=== PATIENT | male | born 1970 | race Caucasian/White ===

== ENCOUNTER 2022-09-02 13:14 | Outpatient (CLI) | payer OTHER, SELFPAY ==
[2022-09-02 17:22] LABS: Cholesterol* 175 mg/dL (90-199)
[2022-09-02 17:23] LABS: HDL Cholesterol* 44 mg/dL (>=40); LDL Cholesterol Calculated 67 mg/dL (<100); Triglycerides* 318 mg/dL (40-149)
== END 2022-09-02 13:15 | disposition home or self-care (01) ==
PROVIDERS: PCP Family Medicine; Visit Provider Family Medicine
DX: E78.5 Hyperlipidemia, unspecified (principal); E03.9 Hypothyroidism, unspecified
CPT/HCPCS: 80061; 84443

== ENCOUNTER 2023-11-15 11:09 | Outpatient (CLI) | payer OTHER, SELFPAY | END 2023-11-15 11:10 | disposition home or self-care (01) | PROVIDERS: PCP Family Medicine; Visit Provider Family Medicine | DX: I10 Essential (primary) hypertension (principal); E78.5 Hyperlipidemia, unspecified; E03.9 Hypothyroidism, unspecified; Z12.5 Encounter for screening for malignant neoplasm of prostate | CPT/HCPCS: 80048; 80061; 84439; G0103 ==

== ENCOUNTER 2024-06-14 15:16 | Outpatient (CLI) | payer OTHER, SELFPAY | END 2024-06-14 15:17 | disposition home or self-care (01) | PROVIDERS: PCP Family Medicine; Visit Provider Family Medicine | DX: R30.0 Dysuria (principal); Z11.3 Encounter for screening for infections with a predominantly sexual mode of transmission | CPT/HCPCS: 86592; 86703; 87491; 87591 ==

== ENCOUNTER 2024-12-27 10:04 | Outpatient (CLI) | payer OTHER, SELFPAY | END 2024-12-27 10:05 | disposition home or self-care (01) | PROVIDERS: PCP Family Medicine; Visit Provider Family Medicine | DX: R53.83 Other fatigue (principal); I10 Essential (primary) hypertension; E03.9 Hypothyroidism, unspecified; E78.5 Hyperlipidemia, unspecified; E13.9 Other specified diabetes mellitus without complications; E66.9 Obesity, unspecified | CPT/HCPCS: 80048; 80061; 84403; 84443 ==

== ENCOUNTER 2025-01-13 14:40 | Outpatient (CLI) | payer OTHER, SELFPAY | END 2025-01-13 14:41 | disposition home or self-care (01) | LOC: LKVREF 14:43 | PROVIDERS: PCP Family Medicine; Visit Provider Family Medicine | DX: E10.65 Type 1 diabetes mellitus with hyperglycemia (principal); Z79.4 Long term (current) use of insulin; Z79.85 Long-term (current) use of injectable non-insulin antidiabetic drugs; Z79.84 Long term (current) use of oral hypoglycemic drugs | CPT/HCPCS: 84681 ==

== ENCOUNTER 2025-04-18 08:59 | Outpatient (CLI) | payer OTHER, SELFPAY | END 2025-04-18 09:00 | disposition home or self-care (01) | PROVIDERS: PCP Family Medicine; Visit Provider Family Medicine | DX: E11.9 Type 2 diabetes mellitus without complications (principal); E03.9 Hypothyroidism, unspecified; I10 Essential (primary) hypertension; E66.9 Obesity, unspecified; Z12.5 Encounter for screening for malignant neoplasm of prostate; E29.1 Testicular hypofunction; Z79.4 Long term (current) use of insulin | CPT/HCPCS: 84270; 84402; 84403; G0103 ==

== ENCOUNTER 2025-05-05 07:01 | Outpatient (CLI) | payer OTHER, SELFPAY ==
--- NOTE | 2025-05-05 07:15 | MR_ITS ---
[address] [address] Phone:?[phone] Fax:?[phone] Referring Physician Information: Nba Bates M.D. [id number] [facility] [address] Phone:?[phone] Fax:?[phone] Patient:Jennifer Multani D.O.B:?1970 Sex:?Male Phone:?[phone] [facility] MRN:?[id number] Exam Date:?05/05/2025 EXAM: MRI OF THE LEFT ELBOW, WITHOUT CONTRAST CLINICAL: Left elbow swelling, mass and lump. COMPARISONS: X-rays 04/30/2025. TECHNICAL: Multiplanar multisequence MRI of the left elbow was obtained. SEDATION: None. CONTRAST: None. FINDINGS: Elbow joint: Effusion: Physiologic. Radiohumeral plica: No pathologic thickening or enlargement. Osteochondral surfaces: No osteochondral abnormality. Bones: No suspicious marrow signal alteration, fracture line, subluxation or dislocation. Myotendinous structures: Biceps: There is moderate tendinosis of the distal biceps tendon at the radial attachment. No biceps tendon tear. Brachialis: No strain/tear. Triceps: Enthesophyte formation involves the distal triceps tendon at the olecranon attachment. Triceps tendon otherwise appears unremarkable. Forearm extensors: There is mild tendinosis/partial tearing of the common extensor tendon at the lateral humeral epicondyle attachment. Forearm flexors: No tear or tendinopathy. Ligaments: Medial ulnar collateral: Normal. Radial collateral proper: Normal. Lateral ulnar collateral: Normal. Nerves: Ulnar: There is thickening and increased signal involving the nerve as it courses within the cubital tunnel with a small accessory anconeus muscle adjacent to the nerve as it courses within the cubital tunnel as seen on axial series 4 images 9-13. Median: Normal. Radial: Normal. Ganglion cyst formation is seen along the lateral aspect of the proximal radius measuring up to 5.6 cm in craniocaudal length as seen on coronal series 7 images 9-13. IMPRESSION: 1. Ganglion cyst along the lateral aspect of the proximal radius adjacent to the skin marker in the region of interest measuring approximately 5.6 cm in size. 2. Moderate tendinosis of the distal biceps tendon at the radial attachment. 3. Mild tendinosis/partial tearing of the common extensor tendon at the lateral humeral epicondyle attachment. 4. Appearance of the ulnar nerve as it courses within the cubital tunnel concerning for neuritis, with a small adjacent accessory anconeus muscle. JCZ Electronically signed on 05/05/2025 1:51:00 PM by Satnam Angel D.O.
== END 2025-05-05 07:02 | disposition home or self-care (01) ==
PROVIDERS: PCP Family Medicine; Visit Provider Orthopaedic Surgery
DX: R22.32 Localized swelling, mass and lump, left upper limb (principal); M67.422 Ganglion, left elbow; S46.812A Strain of other muscles, fascia and tendons at shoulder and upper arm level, left arm, initial encounter
CPT/HCPCS: 73221